=== PATIENT | male | born 1955 ===

== ENCOUNTER 2020-10-10 17:30 | Outpatient (CLI) | payer BC | END 2020-10-10 17:31 | disposition home or self-care (01) | LOC: SLEEPLAB 17:30 | PROVIDERS: ATTEND Internal Medicine | DX: G47.33 Obstructive sleep apnea (adult) (pediatric) (principal); R53.83 Other fatigue; I10 Essential (primary) hypertension | CPT/HCPCS: 95806 ==

== ENCOUNTER 2022-08-10 12:24 | Outpatient (CLI) | payer BC | END 2022-08-10 12:25 | disposition home or self-care (01) | LOC: TBSIIMAG 12:24 | PROVIDERS: ATTEND Neurological Surgery | DX: M47.16 Other spondylosis with myelopathy, lumbar region (principal); M47.12 Other spondylosis with myelopathy, cervical region; M48.02 Spinal stenosis, cervical region; M50.023 Cervical disc disorder at C6-C7 level with myelopathy; M47.815 Spondylosis without myelopathy or radiculopathy, thoracolumbar region; M51.06 Intervertebral disc disorders with myelopathy, lumbar region; M48.062 Spinal stenosis, lumbar region with neurogenic claudication; M25.78 Osteophyte, vertebrae | CPT/HCPCS: 72141; 72148 ==

== ENCOUNTER 2025-04-21 09:52 | Outpatient (CLI) | payer BC, MEDICARE | END 2025-04-21 09:53 | disposition home or self-care (01) | LOC: RAD 09:52 | PROVIDERS: ATTEND Psychiatry & Neurology Neurology | DX: G72.41 Inclusion body myositis [IBM] (principal); R13.14 Dysphagia, pharyngoesophageal phase | CPT/HCPCS: 74230 ==